=== PATIENT | female | born 1985 | race Caucasian/White ===

== ENCOUNTER 2018-05-28 15:08 | Inpatient (IN) | END 2018-05-30 12:47 | disposition home or self-care (01) | DRG 419 ==

== ENCOUNTER 2018-06-07 10:06 | Emergency (ER) | END 2018-06-07 12:04 | disposition home or self-care (01) ==

== ENCOUNTER 2018-11-30 17:32 | Emergency (ER) | payer MEDICAID ==
[~2018-11-30] VITALS: Ht 154.9 cm; Wt 60.1 kg
[~2018-11-30 17:32] MED LIST: CIPR500T4 PO; DOCU-144 PO; HYDR-3601 PO; METR500T PO
[2018-11-30 17:35] VITALS: Ht 154.9 cm; Wt 60.1 kg
[2018-11-30] MEDS ORDERED: SOD CHLORIDE 0.9% 1,000 ML IV STA (18:54)
[2018-11-30] MEDS ORDERED: METOCLOPRAMIDE 10 MG INJ IV STA (18:54)
[2018-11-30] MEDS ORDERED: ONDA8TAB14 PO (20:26)
--- NOTE | 2018-11-30 20:32 | ERD ---
ER Documentation Chief Complaint Chief Complaint pt is bib friend with c/o abd pain vomiting approx 7 wks preg HPI 33-year-old FEmale presents with vomiting since early . Is approximately 7 weeks by dates. She had vomiting with previous pregnancies. She is a G3 para 2. She denies any vaginal bleeding, dysuria, fevers, abdominal pain. She is taking Reglan and has vomiting despite Reglan. She is also on amoxicillin for UTI. Vomit is nonbilious nonbloody. ROS All systems reviewed and are negative except as per history of present illness. Medications Home Meds Active Scripts Ondansetron (Ondansetron Odt) 8 Mg Tab.rapdis, 8 MG PO Q6H PRN for NAUSEA AND/OR VOMITING, #10 TAB Prov:HAILEY FRAGA MD 11/30/18 Metronidazole* (Flagyl*) 500 Mg Tablet, 500 MG PO Q8, #21 TAB Prov:ALCIRA PHILLIPS NP 05/30/18 Ciprofloxacin Hcl* (Ciprofloxacin Hcl*) 500 Mg Tablet, 500 MG PO BID, #14 TAB Prov:ALCIRA PHILLIPS NP 05/30/18 Docusate Sodium* (Colace*) 100 Mg Capsule, 100 MG PO BID, #20 CAP Prov:ALCIRA PHILLIPS NP 05/30/18 Hydrocodone Bit-Acetaminophen (Hydrocodone Bit-APAP) 5-325MG Tablet, 1 TAB PO Q6H PRN for MODERATE PAIN LEVEL 4-6, #14 TAB Prov:ALCIRA PHILLIPS NP 05/30/18 Allergies Allergies: Coded Allergies: No Known Allergy (Unverified , 05/28/18) PMhx/Soc History of Surgery: Yes (c/s x 2, CHOLESYSTECTOMY) Anesthesia Reaction: No Hx Neurological Disorder: No Hx Respiratory Disorders: No Hx Cardiac Disorders: No Hx Psychiatric Problems: No Hx Miscellaneous Medical Probl: No Hx Alcohol Use: No Hx Substance Use: No Hx Tobacco Use: No Smoking Status: Never smoker FmHx Family History: No diabetes, No coronary disease, No other Physical Exam Vitals Vital Signs Date Temp Pulse Resp B/P (MAP) Pulse Ox O2 O2 Flow FiO2 Time Delivery Rate 11/30/18 97.9 66 18 97/52 (67) 98 Room Air 20:44 11/30/18 99.1 82 16 108/55 96 17:35 (72) Physical Exam Const: No acute distress Head: Atraumatic Eyes: Normal Conjunctiva ENT: Normal External Ears, Nose and Mouth. Neck: Full range of motion. No meningismus. Resp: Clear to auscultation bilaterally Cardio: Regular rate and rhythm, no murmurs Abd: Soft, non tender, non distended. Normal bowel sounds Skin: No petechiae or rashes Back: No midline or flank tenderness Ext: No cyanosis, or edema Neur: Awake and alert Psych: Normal Mood and Affect Result Diagram: 11/30/18191711/30/181917 Results 24 hrs Laboratory Tests Test 11/30/18 19:18 White Blood Count 7.8 10^3/ul Red Blood Count 4.46 10^6/ul Hemoglobin 12.6 g/dl Hematocrit 38.2 % Mean Corpuscular Volume 85.7 fl Mean Corpuscular Hemoglobin 28.3 pg Mean Corpuscular Hemoglobin Concent 33.0 g/dl Red Cell Distribution Width 12.8 % Platelet Count 197 10^3/UL Mean Platelet Volume 12.2 fl Immature Granulocytes % 0.300 % Neutrophils % 59.6 % Lymphocytes % 29.2 % Monocytes % 8.0 % Eosinophils % 2.4 % Basophils % 0.5 % Nucleated Red Blood Cells % 0.0 /100WBC Immature Granulocytes # 0.020 10^3/ul Neutrophils # 4.7 10^3/ul Lymphocytes # 2.3 10^3/ul Monocytes # 0.6 10^3/ul Eosinophils # 0.2 10^3/ul Basophils # 0.0 10^3/ul Nucleated Red Blood Cells # 0.0 10^3/ul Urine Color TRESSA Urine Clarity CLOUDY Urine pH 6.0 Urine Specific [place] 1.032 Urine Ketones TRACE mg/dL Urine Nitrite NEGATIVE mg/dL Urine Bilirubin 1+ mg/dL Urine Urobilinogen 2+ mg/dL Urine Leukocyte Esterase 3+ Shruthi/ul Urine Microscopic RBC 5 /HPF Urine Microscopic WBC 24 /HPF Urine Squamous Epithelial Cells MODERATE /HPF Urine Bacteria FEW /HPF Urine Mucus MANY /HPF Urine Hemoglobin NEGATIVE mg/dL Urine Glucose NEGATIVE mg/dL Urine Total Protein 1+ mg/dl Sodium Level 139 mmol/L Potassium Level 3.9 mmol/L Chloride Level 106 mmol/L Carbon Dioxide Level 25 mmol/L Anion Gap 8 Blood Urea Nitrogen 9 mg/dl Creatinine 0.54 mg/dl Est Glomerular Filtrat Rate mL/min > 60 mL/min Glucose Level 73 mg/dl Calcium Level 9.7 mg/dl Lipase 56 U/L Current Medications Medications Dose Sig/Miriam Start Time Status Last (Trade) Ordered Route PRN Stop Time Admin Dose Reason Admin Sodium 1,000 ml @ Q1H STAT 11/30/18 DC 11/30/18 Chloride 1,000 mls/hr IV 18:54 19:31 11/30/18 19:53 10 mg ONCE STAT 11/30/18 DC 11/30/18 Metoclopramid IV 18:54 19:31 e HCl 11/30/18 18:56 (Reglan) Procedures/MDM Urine shows leukocyte esterase, white blood cells with many epithelial cells. Trace ketones. Patient given 1 L normal saline IV, Reglan 10 mg IV. BC and basic metabolic panel normal. Patient felt better after observation treatment. Patient presents following early , likely hyperemesis gravidarum. She has no current signs of abdominal pain, vaginal bleeding, additional concerning signs or symptoms. She does have signs of UTI although she does have many epithelial cells suggesting contamination. She is advised to continue amoxicillin, and we will administer Zofran given symptoms despite Reglan. Will defer changing antibiotics given chronicity of patient's symptoms without urinary complaints and currently taking antibiotics for only a few days. Patient is well-appearing prior to discharge. The patient was stable with no new complaints during the ER course. Clinically, there is no current evidence to suggest meningitis, sepsis, acute abdomen, pneumonia, stroke, acute coronary syndrome, pulmonary embolism, aortic dissection or any other emergent condition appearing to require further evaluation or hospitalization. Patient counseled regarding my diagnostic impression and care plan. Prior to discharge all questions answered. Pt agrees with treatment plan and understands strict return precautions. Pt is instructed to follow up with primary care provider within 24- 48 hours. Precautionary instructions provided including instructions to return to the ER if not improving or for any worsening or changing symptoms or concerns. Departure Diagnosis: Primary Impression: Vomiting Vomiting type: unspecified Vomiting Intractability: unspecified Nausea presence: unspecified Qualified Codes: R11.10 - Vomiting, unspecified Condition: Stable Patient Instructions: Hyperemesis Gravidarum (Severe Morning Sickness) Referrals: DOCTOR,NOT ON STAFF (PCP) Additional Instructions: Examines DE HELLEN normal hoy. Cheque otro vez con branch doctor primario en el proximo bermudez or regresa para mas o nueva simptomas. HAILEY FRAGA MD Nov 30, 2018 20:32
[2018-11-30 20:44] VITALS: BP 97/52; PULSE 66; RESP 18
== END 2018-11-30 20:45 | disposition home or self-care (01) ==
LOC: FTE 17:32
DX: O21.9 Vomiting of pregnancy, unspecified (principal); Z3A.01 Less than 8 weeks gestation of pregnancy
CPT/HCPCS: 36415; 80048; 81001; 83690; 85025; 96361; 96374; J2765; J7030; Z7502

== ENCOUNTER 2018-12-10 14:58 | Emergency (ER) | payer MEDICAID ==
[~2018-12-10] VITALS: Ht 154.9 cm; Wt 54.0 kg
[~2018-12-10 14:58] MED LIST changes: +ONDA8TAB14 PO
[2018-12-10 15:19] VITALS: Ht 154.9 cm; Wt 54.0 kg
[2018-12-10] MEDS ORDERED: SOD CHLORIDE 0.9% 1,000 ML IV STA (16:08)
[2018-12-10] MEDS ORDERED: ONDANSETRON 4 MG INJ IV STA (16:08)
--- NOTE | 2018-12-10 16:19 | ERD ---
ER Documentation Chief Complaint Chief Complaint pt is 9 wks , vomiting x 1 month, unable to eat/drink, HPI 33-year-old female , currently 9 weeks who presents with complaint of persistent nausea and vomiting over the past month. Has had difficulty tolerating p.o. with intermittent dull RUQ epigastric abdominal pain radiating to R flank. Also with complaint of headache lower back pain. Also complaining of burning during urination. Called her PMD who instructed to go to the emergency room for further evaluation. Saw her PMD couple weeks ago and was prescribed Zofran as well as Reglan which she states have not really helped her given she trent been unable to keep pills down secondary to nausea and vomiting. She otherwise denies chest pain, shortness of breath, dyspnea, diarrhea, pelvic pain, vaginal bleeding. Had transvaginal ultrasound on November 22 which she reports as being normal. States in 1 of her previous pregnancies she has similar issues with persistent vomiting, requiring IV administration of fluids and antiemetics intermittently. ROS All systems reviewed and are negative except as per history of present illness. Medications Home Meds Active Scripts Diphenhydramine Hcl* (Benadryl*) 25 Mg Cap, 25 MG PO Q6, #30 CAP Prov:JEUDINE,GETHO PA-C 12/10/18 Acetaminophen* (Tylophen*) 500 Mg Capsule, 1 CAP PO Q6H PRN for PAIN AND OR ELEVATED TEMP, #20 CAP Prov:JEUDINE,GETHO PA-C 12/10/18 Cephalexin* (Keflex*) 500 Mg Capsule, 500 MG PO BID for 7 Days, CAP Prov:JEUDINE,GETHO PA-C 12/10/18 Pyridoxine Hcl* (Pyridoxine Hcl*) 25 Mg Tablet, 25 MG PO Q6 for 30 Days, TAB Prov:JEUDINE,GETHO PA-C 12/10/18 Ondansetron (Ondansetron Odt) 8 Mg Tab.rapdis, 8 MG PO Q6H PRN for NAUSEA AND/OR VOMITING, #10 TAB Prov:HAILEY FRAGA MD 11/30/18 Metronidazole* (Flagyl*) 500 Mg Tablet, 500 MG PO Q8, #21 TAB Prov:ALCIRA PHILLIPS NP 05/30/18 Ciprofloxacin Hcl* (Ciprofloxacin Hcl*) 500 Mg Tablet, 500 MG PO BID, #14 TAB Prov:ALCIRA PHILLIPS REPAIR TABLE OPERATOR 05/30/18 Docusate Sodium* (Colace*) 100 Mg Capsule, 100 MG PO BID, #20 CAP Prov:ALCIRA PHILLIPS REPAIR TABLE OPERATOR 05/30/18 Hydrocodone Bit-Acetaminophen (Hydrocodone Bit-APAP) 5-325MG Tablet, 1 TAB PO Q6H PRN for MODERATE PAIN LEVEL 4-6, #14 TAB Prov:ALCIRA PHILLIPS REPAIR TABLE OPERATOR 05/30/18 Discontinued Scripts Ondansetron (Ondansetron Odt) 4 Mg Tab.rapdis, 4 MG PO Q6H PRN for NAUSEA AND/OR VOMITING, #10 TAB Prov:AJAY GOODRICH PA-C 12/10/18 Allergies Allergies: Coded Allergies: No Known Allergy (Unverified , 05/28/18) PMhx/Soc History of Surgery: Yes (c/s x 2, CHOLESYSTECTOMY) Anesthesia Reaction: No Hx Neurological Disorder: No Hx Respiratory Disorders: No Hx Cardiac Disorders: No Hx Psychiatric Problems: No Hx Miscellaneous Medical Probl: No Hx Alcohol Use: No Hx Substance Use: No Hx Tobacco Use: No FmHx Family History: No diabetes, No coronary disease, No other Physical Exam Vitals Vital Signs Date Temp Pulse Resp B/P (MAP) Pulse Ox O2 O2 Flow FiO2 Time Delivery Rate 12/10/18 99.9 94 20 113/62 99 15:19 (79) Physical Exam I have reviewed the triage vital signs. Const: Well nourished, well developed, appears stated age Eyes: PERRL, no conjunctival injection HENT: NCAT, Neck supple without meningismus CV: RRR, Warm, well-perfused extremities RESP: CTAB, Unlabored respiratory effort GI: soft, tenderness to deep palpation right upper quadrant and epigastrium, when distracted and palpated deeply with stethoscope no signs of distress or grimacing, non-distended, no masses MSK: No gross deformities appreciated Skin: Warm, dry. No rashes Neuro: grossly non focal Psych: Appropriate mood and affect. Result Diagram: 12/10/18 1624 12/10/18 1624 Results 24 hrs Laboratory Tests Test 12/10/18 16:24 White Blood Count 8.8 10^3/ul Red Blood Count 5.01 10^6/ul Hemoglobin 14.2 g/dl Hematocrit 42.3 % Mean Corpuscular Volume 84.4 fl Mean Corpuscular Hemoglobin 28.3 pg Mean Corpuscular Hemoglobin Concent 33.6 g/dl Red Cell Distribution Width 12.5 % Platelet Count 177 10^3/UL Mean Platelet Volume 12.7 fl Immature Granulocytes % 0.200 % Neutrophils % 72.0 % Lymphocytes % 20.8 % Monocytes % 5.7 % Eosinophils % 0.8 % Basophils % 0.5 % Nucleated Red Blood Cells % 0.0 /100WBC Immature Granulocytes # 0.020 10^3/ul Neutrophils # 6.3 10^3/ul Lymphocytes # 1.8 10^3/ul Monocytes # 0.5 10^3/ul Eosinophils # 0.1 10^3/ul Basophils # 0.0 10^3/ul Nucleated Red Blood Cells # 0.0 10^3/ul Urine Color YELLOW Urine Clarity SLIGHTLY CLOUDY Urine pH 5.0 Urine Specific [place] 1.030 Urine Ketones 2+ mg/dL Urine Nitrite NEGATIVE mg/dL Urine Bilirubin NEGATIVE mg/dL Urine Urobilinogen NEGATIVE mg/dL Urine Leukocyte Esterase 2+ Shruthi/ul Urine Microscopic RBC 2 /HPF Urine Microscopic WBC 6 /HPF Urine Squamous Epithelial Cells FEW /HPF Urine Bacteria FEW /HPF Urine Mucus MODERATE /HPF Urine Hemoglobin NEGATIVE mg/dL Urine Glucose NEGATIVE mg/dL Urine Total Protein 1+ mg/dl Sodium Level 142 mmol/L Potassium Level 3.6 mmol/L Chloride Level 107 mmol/L Carbon Dioxide Level 19 mmol/L Anion Gap 16 Blood Urea Nitrogen 9 mg/dl Creatinine 0.56 mg/dl Est Glomerular Filtrat Rate mL/min > 60 mL/min Glucose Level 68 mg/dl Calcium Level 10.5 mg/dl Total Bilirubin 1.9 mg/dl Direct Bilirubin 0.00 mg/dl Indirect Bilirubin 1.9 mg/dl Aspartate Amino Transf (AST/SGOT) 28 IU/L Alanine Aminotransferase (ALT/SGPT) 39 IU/L Alkaline Phosphatase 64 IU/L Total Protein 8.4 g/dl Albumin 4.9 g/dl Globulin 3.50 g/dl Albumin/Globulin Ratio 1.40 Current Medications Medications Dose Sig/Miriam Start Time Status Last (Trade) Ordered Route PRN Stop Time Admin Dose Reason Admin Sodium 1,000 ml @ Q1H STAT 12/10/18 DC 12/10/18 Chloride 1,000 mls/hr IV 16:08 12/10/18 16:25 17:07 Ondansetron 4 mg ONCE STAT 12/10/18 DC 12/10/18 HCl (Zofran IV 16:08 12/10/18 16:24 Inj) 16:10 Famotidine 20 mg ONCE ONCE 12/10/18 DC 12/10/18 (Pepcid Iv) IV 17:00 12/10/18 16:51 17:01 Meclizine 25 mg ONCE ONCE 12/10/18 DC 12/10/18 HCl PO 18:00 12/10/18 18:01 (Antivert) 18:01 Procedures/MDM 33-year-old female 9 weeks who presents with persistent nausea vomiting. Symptoms likely secondary to hyperemesis gravidarum in a patient with previous history of such. She denies pelvic pain, vaginal bleeding. She has mild RUQ and epigastric abdominal pain, need to rule out gallbladder involvement, pyelonephritis. Also concern is for dehydration given the length of symptoms. Work-up initiated in the ED, treatment with intravenous fluids and antiemetics. I have low suspicion for any other process warranting further emergent work-up and treatment at this time. ED course: 1 L intravenous fluids IV Zofran Antivert Labs not impressive for significant dehydration, WBC within normal limits UA with 2+ leukocyte esterase, will treat with course of antibiotics with Keflex, urine culture sent Ultrasound gallbladder unable to image the gallbladder secondary to bowel gas Will discharge with Benadryl, Tylenol, vitamin B6 Reassessment: Show improvement in symptoms, less nausea and dizziness, resolution of abdominal pain and discomfort, able to tolerate p.o. without subsequent vomiting episodes, improved exam with no tenderness to palpation to all 4 quadrants She was advised to return to emergency room in 8 to 12 hours for reexamination or sooner if symptoms acutely worsen given equivocal ultrasound results. Patient advised to follow-up with PMD as well as [facility] for continued care of her symptoms. Strict return precautions explained in detail using service support representative. DISPOSITION PLAN: We discussed follow up with the patient's primary care doctor within 24 to 48 hours. Patient counseled regarding my diagnostic impression and care plan. Prior to discharge all questions answered. Pt agrees with treatment plan and understands strict return precautions. Precautionary instructions provided including instructions to return to the ER if not improving or for any worsening or changing symptoms or concerns. Disclaimer: Inadvertent spelling and grammatical errors are likely due to EHR/dictation software use and do not reflect on the overall quality of patient care. Also, please note that the electronic time recorded on this note does not necessarily reflect the actual time of the patient encounter. Departure Diagnosis: Primary Impression: Hyperemesis arising during Additional Impression: Vomiting Condition: Stable Patient Instructions: : Your First Trimester Changes, Hyperemesis Gravidarum Additional Instructions: Call your primary care doctor TOMORROW for an appointment during the next 2-3 days.See the doctor sooner or return here if your condition worsens before your appointment time. Make sure to follow-up with your PMD and [facility] for continued care. AJAY GOODRICH PA-C December 10, 2018 16:19
[2018-12-10] MEDS ORDERED: PYRI25TA4 PO (16:41)
[2018-12-10] MEDS ORDERED: FAMOTIDINE 20 MG INJ IV ONE (17:00)
[2018-12-10] MEDS ORDERED: CEPH-443 PO (17:49)
[2018-12-10] MEDS ORDERED: ONDA4TAB14 PO (17:52)
[2018-12-10] MEDS ORDERED: MECLIZINE 12.5 MG TAB PO ONE (18:00)
[2018-12-10] MEDS ORDERED: ACET500C5 PO (18:44)
[2018-12-10] MEDS ORDERED: BEN25 PO (18:47)
[2018-12-10 19:03] VITALS: BP 101/53; PULSE 63; RESP 18
== END 2018-12-10 19:04 | disposition home or self-care (01) ==
LOC: FTE 14:58
DX: O21.1 Hyperemesis gravidarum with metabolic disturbance (principal); R10.31 Right lower quadrant pain; Z3A.09 9 weeks gestation of pregnancy
CPT/HCPCS: 76705; 80053; 81001; 85025; 87086; J2405; J7030; Z7610; 36415; 96361; 96374; 96375

== ENCOUNTER 2018-12-18 10:21 | Emergency (ER) | payer MEDICAID ==
[~2018-12-18] VITALS: Ht 152.4 cm; Wt 59.0 kg
[~2018-12-18 10:21] MED LIST changes: +ACET500C5 PO; +BEN25 PO; +CEPH-443 PO; +PYRI25TA4 PO
[2018-12-18 10:27] VITALS: Ht 152.4 cm; Wt 59.0 kg
[2018-12-18] MEDS ORDERED: ACETAMINOPHEN 500 MG TAB PO STA (11:48)
[2018-12-18] MEDS ORDERED: SOD CHLORIDE 0.9% 1,000 ML IV STA (11:48)
[2018-12-18] MEDS ORDERED: DIPHENHYDRAMINE 50 MG INJ IV ONE (12:00)
[2018-12-18] MEDS ORDERED: METOCLOPRAMIDE 10 MG INJ IV ONE (12:00)
[2018-12-18] MEDS ORDERED: CEFTRIAXONE 1 GM/50 ML (PMX) 50 ML IVPB ONE (14:30)
[2018-12-18 15:09] VITALS: BP 103/63; PULSE 90; RESP 14
[2018-12-18] MEDS ORDERED: ONDA4TAB14 PO (15:10)
[2018-12-18] MEDS ORDERED: CEPH-443 PO (15:10)
[2018-12-18] MEDS ORDERED: PYRI25TA4 PO (15:10)
--- NOTE | 2018-12-18 18:44 | ERD ---
ER Documentation Chief Complaint Chief Complaint pt bib family with c/o vomiting and weakness 8 wks preg, pale HPI History of Present Illness: 33-year-old female who denies past medical history coming in today with complaint of bilateral flank pain, vomiting, weakness that is been present for 1 week. Associated symptoms includes dysuria. Patient reports being approximately 8 weeks . Patient denies any other associated symptoms. Patient was seen at [facility] emergency department approximately 7 days ago for fever and abdominal pain. At home pharmacological/nonpharmacological treatment for symptoms: Denies Denies social concerns; Denies recent foreign travel ROS All systems reviewed and are negative except as per history of present illness. Medications Home Meds Active Scripts Pyridoxine Hcl* (Pyridoxine Hcl*) 25 Mg Tablet, 25 MG PO TID for NAUSEA PREVENTOIN for 30 Days, TAB Prov:REN TORREZ NP 12/18/18 Ondansetron (Ondansetron Odt) 4 Mg Tab.rapdis, 4 MG PO Q6H PRN for NAUSEA AND/OR VOMITING, #10 TAB Prov:REN TORREZ NP 12/18/18 Cephalexin* (Keflex*) 500 Mg Capsule, 500 MG PO QID for URINE INFECTION for 7 Days, CAP Prov:REN TORREZ V SEWER BRICKLAYER 12/18/18 Diphenhydramine Hcl* (Benadryl*) 25 Mg Cap, 25 MG PO Q6, #30 CAP Prov:JEUDINE,GETHO PA-C 12/10/18 Acetaminophen* (Tylophen*) 500 Mg Capsule, 1 CAP PO Q6H PRN for PAIN AND OR ELEVATED TEMP, #20 CAP Prov:JEUDINE,GETHO PA-C 12/10/18 Cephalexin* (Keflex*) 500 Mg Capsule, 500 MG PO BID for 7 Days, CAP Prov:JEUDINE,GETHO PA-C 12/10/18 Pyridoxine Hcl* (Pyridoxine Hcl*) 25 Mg Tablet, 25 MG PO Q6 for 30 Days, TAB Prov:JEUDINE,GETHO PA-C 12/10/18 Ondansetron (Ondansetron Odt) 8 Mg Tab.rapdis, 8 MG PO Q6H PRN for NAUSEA AND/OR VOMITING, #10 TAB Prov:HAILEY FRAGA MD 11/30/18 Metronidazole* (Flagyl*) 500 Mg Tablet, 500 MG PO Q8, #21 TAB Prov:ALCIRA PHILLIPS SEWER BRICKLAYER 05/30/18 Ciprofloxacin Hcl* (Ciprofloxacin Hcl*) 500 Mg Tablet, 500 MG PO BID, #14 TAB Prov:ALCIRA PHILLIPS SEWER BRICKLAYER 05/30/18 Docusate Sodium* (Colace*) 100 Mg Capsule, 100 MG PO BID, #20 CAP Prov:ALCIRA PHILLIPS SEWER BRICKLAYER 05/30/18 Hydrocodone Bit-Acetaminophen (Hydrocodone Bit-APAP) 5-325MG Tablet, 1 TAB PO Q6H PRN for MODERATE PAIN LEVEL 4-6, #14 TAB Prov:ALCIRA PHILLIPS SEWER BRICKLAYER 05/30/18 Allergies Allergies: Coded Allergies: No Known Allergy (Unverified , 05/28/18) PMhx/Soc History of Surgery: Yes ( X2) Anesthesia Reaction: No Hx Neurological Disorder: No Hx Respiratory Disorders: No Hx Cardiac Disorders: No Hx Psychiatric Problems: No Hx Miscellaneous Medical Probl: No Hx Alcohol Use: No Hx Substance Use: No Hx Tobacco Use: No FmHx Family History: No diabetes, No coronary disease Physical Exam Vitals Physical Exam Const: No acute distress Head: Atraumatic Eyes: Normal Conjunctiva ENT: Normal External Ears, Nose and Mouth. Neck: Full range of motion. No meningismus. Resp: Clear to auscultation bilaterally Cardio: Regular rate and rhythm, no murmurs Abd: Soft, tenderness to suprapubic, non distended. Normal bowel sounds. Palpable fundus. Skin: No petechiae or rashes Back: No midline or flank tenderness; no CVA tenderness Ext: No cyanosis, or edema Neur: Awake and alert Psych: Normal Mood and Affect Results 24 hrs Laboratory Tests Test 12/18/18 12:11 12/18/18 12:18 Sodium Level 137 mmol/L Potassium Level 3.3 mmol/L Chloride Level 104 mmol/L Carbon Dioxide Level 19 mmol/L Anion Gap 14 Blood Urea Nitrogen 10 mg/dl Creatinine 0.46 mg/dl Est Glomerular Filtrat Rate mL/min > 60 mL/min Glucose Level 121 mg/dl Calcium Level 10.7 mg/dl Total Bilirubin 1.7 mg/dl Direct Bilirubin 0.00 mg/dl Indirect Bilirubin 1.7 mg/dl Aspartate Amino Transf (AST/SGOT) 107 IU/L Alanine Aminotransferase (ALT/SGPT) 147 IU/L Alkaline Phosphatase 90 IU/L Total Protein 8.4 g/dl Albumin 4.8 g/dl Globulin 3.60 g/dl Albumin/Globulin Ratio 1.33 White Blood Count 10.0 10^3/ul Red Blood Count 5.33 10^6/ul Hemoglobin 15.3 g/dl Hematocrit 43.1 % Mean Corpuscular Volume 80.9 fl Mean Corpuscular Hemoglobin 28.7 pg Mean Corpuscular Hemoglobin Concent 35.5 g/dl Red Cell Distribution Width 12.6 % Platelet Count 169 10^3/UL Mean Platelet Volume 13.4 fl Immature Granulocytes % 0.300 % Neutrophils % 72.6 % Lymphocytes % 18.8 % Monocytes % 7.5 % Eosinophils % 0.5 % Basophils % 0.3 % Nucleated Red Blood Cells % 0.0 /100WBC Immature Granulocytes # 0.030 10^3/ul Neutrophils # 7.2 10^3/ul Lymphocytes # 1.9 10^3/ul Monocytes # 0.8 10^3/ul Eosinophils # 0.1 10^3/ul Basophils # 0.0 10^3/ul Nucleated Red Blood Cells # 0.0 10^3/ul Urine Color TRESSA Urine Clarity SLIGHTLY CLOUDY Urine pH 6.0 Urine Specific [place] 1.030 Urine Ketones 2+ mg/dL Urine Nitrite NEGATIVE mg/dL Urine Bilirubin NEGATIVE mg/dL Urine Urobilinogen 2+ mg/dL Urine Leukocyte Esterase 1+ Shruthi/ul Urine Microscopic RBC 3 /HPF Urine Microscopic WBC 6 /HPF Urine Squamous Epithelial Cells FEW /HPF Urine Bacteria FEW /HPF Urine Mucus MANY /HPF Urine Hemoglobin 1+ mg/dL Urine Glucose NEGATIVE mg/dL Urine Total Protein 2+ mg/dl Beta HCG, Quantitative 590767.0 mIU/ml Current Medications Medications Dose Sig/Miriam Start Time Status Last (Trade) Ordered Route PRN Stop Time Admin Dose Reason Admin Sodium 1,000 ml @ Q1H STAT 12/18/18 DC 12/18/18 Chloride 1,000 mls/hr IV 11:48 12:21 12/18/18 12:47 10 mg ONCE ONCE 12/18/18 DC 12/18/18 Metoclopramid IV 12:00 12:25 e HCl 12/18/18 12:01 (Reglan) 25 mg ONCE ONCE 12/18/18 DC Diphenhydrami IV 12:00 ne HCl 12/18/18 12:01 (Benadryl) 1,000 mg ONCE STAT 12/18/18 DC 12/18/18 Acetaminophen PO 11:48 12:21 (Tylenol 12/18/18 11:54 Tab) Ceftriaxone 50 ml @ ONCE ONCE 12/18/18 DC 12/18/18 Sodium 100 mls/hr IVPB 14:30 14:16 12/18/18 14:59 Procedures/MDM ED course includes a thorough examination and history. Medications: IV NS, acetaminophen, Reglan, Benadryl Imaging: Labs: CBC, beta quantitative, urinalysis, Rh Low suspicion for life-threatening medical emergency. Low suspicion for obstetrical emergency. Low suspicion for acute abdominal emergency that requires hospitalization or immediate surgical intervention. Low suspicion for infectious emergency that requires hospitalization at this time. Low suspicion for acute cholecystitis, patient without right upper quadrant abdominal pain at this time. Otherwise healthy patient presenting with constellation of symptoms likely representing urinary tract infection during /fever as characterized by history, physical exam findings, lab findings, imaging findings. CBC: no e/o of systemic infection or severe anemia. CMP: no e/o severe acidosis, alkalosis, renal failure, diabetic ketoacidosis; mild elevation in liver enzyme, mild hypokalemia. Urinalysis with positive leukocyte esterase, bacteria. Beta quantitative is 123k. Ultrasound impression showing: IMPRESSION: Single live intrauterine with an estimated gestational age of 10 weeks and 2 days, based on ultrasound measurements. MARLENE based on ultrasound measurements is 07/14/19. .Artemio Bautista MD, MD Date Time Electronically viewed and signed by .Artemio Bautista MD, MD on 12/18/2018 12:58 Patient reassessment @1510: Patient hemodynamically stable. Patient is afebrile after medication administration. Patient tolerating p.o. fluids during ER visit. Patient denies nausea/vomiting. Patient denies abdominal pain. Patient reports weakness has decreased. No respiratory distress, otherwise relatively well appearing and nontoxic. Disposition given. Patient educated on diagnoses, prescriptions, follow-up care, return precautions. Strict return precautions given for worsening condition; questions answered discharge. Disposition for discharge with followup in 2 days with PCP/clinic. Departure Diagnosis: Primary Impression: Fever Fever type: unspecified Qualified Codes: R50.9 - Fever, unspecified Additional Impression: UTI (urinary tract infection) during Trimester: first trimester Qualified Codes: O23.41 - Unspecified infection of urinary tract in , first trimester Condition: Stable Patient Instructions: Hyperemesis Gravidarum (Severe Morning Sickness), Urinary Tract Infections in Women Ref[facility] Usted se trent hecho un examen mdico de control que le indica que no est en sabi condicin que requiera tratamiento urgente en el Departamento de Emergencia. Un estudio ms profundo y el tratamiento de branch condicin pueden esperar sin ningn riesgo hasta que usted sea atendida/o en el consultorio de branch mdico o sabi clnica. Es responsabilidad suya arreglar sabi jacobo para el seguimiento del yohana. MANEJO DE CONDICIONES NO URGENTES EN EL FUTURO 1) Si usted tiene un mdico de atencin primaria: Usted debera llamar a branch mdico de atencin primaria antes de venir al departamento de emergencia. Despus de las horas de consultorio, branch doctor o branch asociado/a est disponible por telfono. El mdico o enfermero de keron en el servicio telefnico puede asesorarle por yen medio para atender el problema, o yohana contrario se puede programar sabi jacobo. 2) Si usted no tiene un mdico de atencin primaria: Llame al mdico o clnica de referencia que aparece abajo nathen las horas de consultorio para hacer sabi jacobo para que le vean. CLINICAS: [facility] 201 [phone] [address] [facility] 630 [phone] [address] [facility] 279 [phone] [address] [facility] [phone] [facility] [facility] 183 [phone] [address] [facility]. [phone] [address] [facility]. [facility] () [place] se trent hecho un examen mdico de control que le indica que no est en sabi condicin que requiera tratamiento urgente en el Departamento de Emergencia. Un estudio ms profundo y el tratamiento de branch condicin pueden esperar sin ningn riesgo hasta que usted sea atendida/o en el consultorio de branch mdico o sabi clnica. Es responsabilidad suya arreglar sabi jacobo para el seguimiento del yohana. MANEJO DE CONDICIONES NO URGENTES EN EL FUTURO 1) Si usted tiene un mdico de atencin primaria: Usted debera llamar a branch mdico de atencin primaria antes de venir al departamento de emergencia. Despus de las horas de consultorio, branch doctor o branch asociado/a est disponible por telfono. El mdico o enfermero de keron en el servicio telefnico puede asesorarle por yen medio para atender el problema, o yohana contrario se puede programar sabi jacobo. 2) Si usted no tiene un mdico de atencin primaria: Llame al mdico o condado institucions de referencia que aparece abajo nathen las horas de consultorio para hacer sabi jacobo para que le vean. SI USTED NO PUEDE PAGAR PARA ADOLPH UN MEDICO puede ir a: [facility] [address] [place] [address] [facility] [address] [place] [address] [facility] [address] [place] [address] [facility] [address] [place] [address] Additional Instructions: Thank you very much for allowing us to participate in your care. Your health and safety is our top priority at [facility]. It is important to read all discharge instructions and education provided in your discharge packet. Call your primary care doctor TOMORROW for an appointment during the next 2-4 days and bring all the information and medications prescribed. Have prescriptions filled and follow precisely the directions on the label. --Acetaminophen as a medication for pain and/or fever. Take this medication as needed for mild to moderate pain. This medication will not cause drowsiness. This medication is safe during for pain. -Zofran is a medication for nausea/vomitting; take this medication as needed for nausea/vomiting/decreased appetite. -Pyridoxine is vitamin B6. Take this medication every 8 hours; research studies show that this vitamin can help with nausea prevention. -Cephalexin is an antibiotic; take this medication every day as listed on your prescription. You must complete the entire course of treatment that is listed on your prescription this is very important because it takes a certain number of days to kill the bacteria that is causing the urine infection. If the symptoms get worse and your provider is unavailable, return to the Emergency Department immediately. REN TORREZ NP December 18, 2018 18:44
== END 2018-12-18 15:25 | disposition home or self-care (01) ==
LOC: FTE 10:21
DX: O99.89 Other specified diseases and conditions complicating pregnancy, childbirth and the puerperium (principal); R50.9 Fever, unspecified; O23.41 Unspecified infection of urinary tract in pregnancy, first trimester; Z3A.10 10 weeks gestation of pregnancy
CPT/HCPCS: 76801; 80053; 81001; 84702; 85025; 86900; 86901; J0696; J1200; J2765; J7030; Z7610; 36415; 96361; 96365; 96375